=== PATIENT | male | born 1940 | race Caucasian/White ===

== ENCOUNTER 2016-04-06 20:27 | Outpatient (CLI) | payer MEDICARE, OTHER | END 2016-04-06 20:28 | disposition home or self-care (01) | DX: L03.031 Cellulitis of right toe (principal) ==

== ENCOUNTER 2016-11-21 10:37 | Outpatient (CLI) | payer MEDICARE, OTHER | END 2016-11-21 10:38 | disposition home or self-care (01) | LOC: LAB 10:37 | PROVIDERS: ATTEND Internal Medicine Cardiovascular Disease | DX: I42.5 Other restrictive cardiomyopathy (principal); I48.2 Chronic atrial fibrillation; I25.810 Atherosclerosis of coronary artery bypass graft(s) without angina pectoris | CPT/HCPCS: 36415; 80048; 80162 ==